=== PATIENT | female | born 1955 | race Caucasian/White ===

== ENCOUNTER 2019-12-14 22:53 | Emergency (ER) | payer OTHER, SELFPAY ==
[2019-12-14 23:02] VITALS: BP 156/90; PULSE 86; RESP 18; TEMP 36.5; O2SAT 97
--- NOTE | 2019-12-14 23:37 | ED_ITS ---
HPI - GI Bleed General Chief complaint: Abdominal Pain Stated complaint: abdominal pain Time Seen by Provider: 12/14/19 23:21 Source: patient Mode of arrival: Ambulatory Limitations: no limitations History of Present Illness HPI Narrative: Patient is a 63-year-old female here for evaluation of abdominal pain. Patient states that she thinks she is constipated. She has not had a bowel movement in the past 4 days. No vomiting. He is still passing flatus. No urinary symptoms. No prior abdominal surgeries. Has tried an enema at home without any improvement. She has also tried Mag citrate by mouth. Has also tried suppositories. Review of Systems Constitutional Constitutional: Denies fever(s) Cardiovascular Cardiovascular: Denies chest pain and Denies dyspnea Respiratory Respiratory: Denies dyspnea Gastrointestinal Gastrointestinal: Reports abdominal pain, Reports bloating, Reports constipation, Denies nausea and Denies vomiting Genitourinary Genitourinary: Denies dysuria Genitourinary: Denies dysuria Musculoskeletal Musculoskeletal: Denies arthralgias and Denies myalgias Integumentary/Breasts Skin/Breast: Denies rash Neurologic Neurologic: Denies behavioral changes Psychiatric Psychiatric: Denies behavioral changes Hematologic/Lymphatic Hematologic/Lymphatic: Denies easy bleeding and Denies easy bruising Allergic/Immunologic Allergic/Immunologic: Denies urticaria Patient History Medical History Patient denies medical problems (Acute) Social History Smoking Status: Never smoker Smoking Status: Never smoker alcohol intake frequency: a few times a month Substance Use Type: does not use Exam Initial Vital Signs Initial Vital Signs: Vital Signs Temperature 97.7 F 12/14/19 23:02 Pulse Rate 86 12/14/19 23:02 Respiratory Rate 18 12/14/19 23:02 Blood Pressure 156/90 H 12/14/19 23:02 Pulse Oximetry 97 12/14/19 23:02 Const General: cooperative and comfortable Limitations: mental status not altered HENMT Head: normal to inspection and normocephalic Resp Effort & Inspection: normal respiratory effort Cardio Rate: regular rate GI Inspection: non-distended Palpation: soft and No tender Skin Lesions: no lesions Rashes: no rashes Neuro General: patient alert and patient awake Cognition: normal cognition Speech: speech normal Extrem General: normal to inspection and capillary refill normal Psych Appearance: grossly normal and well kempt Course Orders Ordered: Discontinued Medications Mineral Oil (Mineral Oil Enema) 1 each MT NOW ONE Stop: 12/14/19 23:38 Last Admin: 12/15/19 00:09 Dose: 1 each Documented by: ARSEN Vital Signs Vital signs: Vital Signs - 8 hr 12/14/19 23:02 Temperature 97.7 F Pulse Rate 86 Respiratory Rate 18 Blood Pressure 156/90 H Pulse Oximetry 97 MDM - GI Bleed MDM Narrative Medical decision making narrative: Patient has a soft abdomen. No prior abdominal surgeries. No vomiting. No fevers. Is still passing flatus. Was given an enema here in the ER with only a small amount of stool passage. I offered a rectal exam with potential manual disimpaction but the patient declined. We did discuss the possibility of other issues to include bowel obstructions but given her other presenting symptoms and feel this is unlikely. We did discuss an x-ray to help with determining this however the patient declined. Patient would like to be discharged home to that she can continue to take laxatives at home. She was given strict return precautions. She expressed understanding and agreement. Discharge Plan Departure Patient Disposition: Home Clinical Impression: Abdominal pain Qualifiers: Abdominal location: generalized Qualified Code(s): R10.84 - Generalized abdominal pain Constipation Qualifiers: Constipation type: unspecified constipation type Qualified Code(s): K59.00 - Constipation, unspecified Discharge Date/Time: 12/15/19 01:05 Instructions: DI for Abdominal Pain-Adult, DI for Constipation Activity Restrictions/Additional Instructions: There are many different types of laxatives all of which you can purchase [id number]. These include MiraLax which he can take every 6 hours as needed. There is also magnesium citrate. You can also purchase enemas over-th e-counter. Sometimes it takes several doses of these types of treatments in order to have a bowel movement. Would not be surprised if your next bowel movement is fairly uncomfortable and also fairly large. There could also be blood associated with bowel movements after episodes of constipation. Be sure that you are increasing your fluid intake. Recommend you contact your primary provider for follow-up. If you start to develop fevers, worsening pain or any other new symptoms please return to the emergency department.
[2019-12-15] MEDS: MINERAL OIL 1 EACH ENEMA PR (00:09)
--- NOTE | 2019-12-15 01:17 | PC.NURSE ---
Patient reported enema was unsuccessful. Provider notified. Provider ordered CT scan of abdomen, patient declined and stated wanted to leave.
--- NOTE | 2019-12-15 01:19 | PC.NURSE ---
Patient left ED before signing discharge papers.
== END 2019-12-15 01:05 | disposition home or self-care (01) ==
PROVIDERS: Emergency Provider Emergency Medicine
DX: R10.84 Generalized abdominal pain (principal); K59.00 Constipation, unspecified
CPT/HCPCS: 99283; 99284